=== PATIENT | female | born 1985 | race African-American/Black ===

== ENCOUNTER 2021-06-21 15:08 | Observation (INO) | payer MEDICAID ==
[~2021-06-21] VITALS: Ht 165.1 cm; Wt 77.0 kg
[2021-06-21 16:41] VITALS: BP 146/98; PULSE 88; TEMP 99.6
[2021-06-21 16:48] LABS: BASO % 0.2 % (0.0-2.0); EOS # 0.1 K/mm3 (0.0-0.7); EOS % 1.5 % (0.0-4.0); GRAN # 1.7 K/mm3 (1.4-6.5); GRAN % 41.6 % (42.2-75.2); HEMOGLOBIN 11.1 g/dl (12.5-16.0); LYMPH % 48.7 % (20.0-51.0); MEAN CELL VOLUME 71 fl (80.0-100.0); MEAN CORPUSCULAR HEMOGLOBIN 23 pg (27-31); MEAN CORPUSCULAR HGB CONC 32 g/dl (33.0-37.0); MONO # 0.3 K/mm3 (0.1-0.6); MONO % 7.8 % (1.7-9.3); PLATELET COUNT 155 K/mm3 (130-400); RED BLOOD COUNT 4.93 M/mm3 (4.10-5.30); REDCELL DISTRIBUTION WIDTH-CV 17.2 % (11.5-14.5)
[2021-06-21 16:50] LABS: HEMATOCRIT 35.1 % (37.0-47.0)
--- NOTE | 2021-06-21 16:55 | NUR ---
1500 PATIENT HERE DIRECT ADMIT FROM OFFICE.COMPLAINS OF SOB AND PAIN IN BACK SINCE 2ND COVID VACCINE ON JUNE 01. BEEN TO AND EMERGENCY ROOM SINCE THEN AND IT IS NOT GETTING BETTER. FULL ASSESSMENT COMPLETED AT THIS TIME. VS WNL. PATIENT LUNGS CLEAR AND SAT 100% ON ROOM AIR. COMPLAINS OF PAIN IN BACK AND RIGHT UPPER SHOULDER, AND HAS BEEN ON PAIN MEDS AND FLEXERIL FOR THOSE. COVID SWAB DONE AT THIS TIME. 1545 DR LÓPEZ AT BEDSIDE FOR FULL ASSESSMENT, AND TO TALK WITH PATIENT AND MOTHER TO DISCUSS PLAN OF CARE. 1600 IV STARTED IN RIGHT ANTICUBITAL BY Mala MARTINEZ CRNA AND LABS DRAWN AT THIS TIME,TAKEN TO LAB. PATIENT TOLERATES WELL. 1640 RESP. THERAPY AT BEDSIDE FOR EKG AND TELEMETRY PLACED BY THIS NURSE. ICU CALLED AND VERIFIED HEART RYTHM ON AND TRACING WELL
[2021-06-21 17:05] LABS: ALANINE AMINOTRANSFERASE 68 U/L (0-55); ALKALINE PHOSPHATASE 86 U/L (40-150); ANION GAP 8 mmol/L (7-16); AST,SGOT 43 U/L (5-34); BLOOD UREA NITROGEN 11 mg/dL (7-19); C-REACTIVE PROTEIN 0.27 mg/dL (0.00-0.50); CALCIUM 8.9 mg/dL (8.4-10.2); CARBON DIOXIDE 22 mmol/L (22-29); CHLORIDE 107 mmol/L (98-107); CREATININE, serum 0.76 mg/dL (0.57-1.11); GLUCOSE 100 mg/dL (70-99); POTASSIUM 3.8 mmol/L (3.5-4.5); SODIUM 137 mmol/L (136-145); TOTAL PROTEIN 7.5 gm/dL (6.2-8.1)
[2021-06-21 17:11] LABS: TROPONIN-I < 0.010 ng/mL (0.00-0.033)
[2021-06-21] MEDS ORDERED: NORCO 325 MG-51 TAB PO (17:25)
[2021-06-21] MEDS ORDERED: FLEXERIL 1010 MG/TAB PO (17:26)
--- NOTE | 2021-06-21 18:45 | NUR ---
Pt returned from CT by wheelchair. Pt going to order dinner. Denies needing anything else at this time. 1930: Pt finished eating. Assessment and VS completed. Pt reports feeling short of breath since her second covid vaccination but denies any chest pain. Oxygen saturation on room air 100%. Plan of care for the night explained. Call light within reach. Denies needing anything further at this time.
[2021-06-21 19:30] VITALS: BP 128/89; PULSE 90; TEMP 98.3
[2021-06-21 23:45] VITALS: BP 129/84; PULSE 94; TEMP 98
--- NOTE | 2021-06-21 23:45 | NUR ---
OXYGEN SATURATION 100% ON ROOM AIR
[2021-06-22 05:00] VITALS: BP 129/92; PULSE 90; TEMP 98.2
[2021-06-22 07:30] VITALS: BP 140/97; PULSE 90; TEMP 98
--- NOTE | 2021-06-22 08:11 | NUR ---
0730 PT SITTING UP IN BED, STATES PAIN IS NEVER BELOW A 5 OR 6. VITAL SIGNS STABLE, O2 SAT 100% ON RM AIR
--- NOTE | 2021-06-22 10:16 | NUR ---
Initial visit; Patient thanked [employer] Officer for offering Good morning and God's blessings.
[2021-06-22 13:00] VITALS: BP 127/67; PULSE 94; TEMP 97.9
[2021-06-22] MEDS ORDERED: PROAIR HFA0.09 MG/AC IH (15:58)
[2021-06-22] MEDS ORDERED: MOTRIN 600600 MG/TAB PO (15:58)
[2021-06-22] MEDS ORDERED: TYLENOL 325MG325 MG PO (15:59)
--- NOTE | 2021-06-22 19:00 | NUR ---
1900 DRESSED AND WAITING FOR RIDE HOME. REGULAR DIET TAKEN
--- NOTE | 2021-06-22 20:00 | NUR ---
1999 DISMISSED FROM HOSPITAL. ASSIST PER AMB TO 317 TO BE WITH DAUGHTER WHO WAS JUST ADMITTED TO HOSPITAL. NO QUESTIONS AT THIS TIME
== END 2021-06-22 20:00 | disposition home or self-care (01) ==
LOC: OB 15:08
PROVIDERS: Physician Assistant; ADMIT Internal Medicine
DX: R06.00 Dyspnea, unspecified (principal); R07.89 Other chest pain; Z20.822 Contact with and (suspected) exposure to COVID-19
CPT/HCPCS: G0378; J1650; Q9967